=== PATIENT | male | born 1935 | race Caucasian/White ===

== ENCOUNTER 2018-09-25 14:29 | Inpatient (IN) ==
[2018-09-25] MEDS ORDERED: CLINDAMYCIN 900 MG/NS 900 MG/50 ML IVPB IV ONE (15:47)
[2018-09-25] MEDS ORDERED: VANCOMYCIN 1 GM/NS 1 GM/250 ML IVPB IV ONE (15:47)
[2018-09-25] MEDS ORDERED: NS 1,000 ML IV ONE (15:48)
[2018-09-25 16:19] LABS: BASO# 0.04 X1000 (0.0-0.2); BASO% 0.7 % (0.0-0.8); EOS# 0.01 X1000 (0.0-0.7); EOS% 0.2 % (0.0-10.0); HEMATOCRIT 43.3 % (42.0-52.0); HEMOGLOBIN 14.9 g/dL (14.0-18.0); LYMPH# 0.46 X1000 (1.2-3.4); MCH 31.8 PG (27-31); MCHC 34.4 g/dL (33-37); MCV 92.3 FL (81-99); MONO# 0.41 X1000 (0.11-0.59); MONO% 7.2 % (1.7-9.3); MPV 10.6 FL (7.4-10.4); NEUT# 4.81 X1000 (1.4-6.5); NEUT% 83.9 % (42.2-75.2); PLT 133 X1000 (130-400); RBC 4.69 XMIL (4.7-6.1); RDW 13.2 % (11.5-14.5); WBC 5.73 X1000 (4.8-10.8)
[2018-09-25 16:39] LABS: URINE SOURCE CLEAN CATCH
[2018-09-25 16:42] LABS: INR 1.01; PROTIME 14.1 Seconds (11.0-16.0)
[2018-09-25 16:43] LABS: PTT 25.1 Seconds (22.3-41.8)
[2018-09-25 16:45] LABS: ALB/GLOB RATIO 1.7; ALBUMIN 4.3 g/dL (3.5-5.0); CALCIUM 8.6 mg/dL (8.8-10.2); CREATININE 1.4 mg/dL (0.7-1.2); POTASSIUM 4.2 mmol/L (3.5-5.1); TOTAL BILIRUBIN 0.37 mg/dL (0.20-1.00); TOTAL PROTEIN 6.9 g/dL (6.3-8.3)
[2018-09-25 16:50] LABS: COLOR YELLOW; TURBIDITY URINE CLEAR (CLEAR)
[2018-09-25 16:51] LABS: BILIRUBIN URINE NEGATIVE (NEGATIVE); BLOOD URINE LARGE (NEGATIVE); GLUCOSE URINE TRACE mg/dL (NEGATIVE); KETONE URINE 20 mg/dL (NEGATIVE); LEUKOCYTES URINE NEGATIVE (NEGATIVE); NITRITE URINE NEGATIVE (NEGATIVE); PH URINE 5.5; PROTEIN URINE 50 mg/dL (NEGATIVE); SP GRAVITY URINE 1.023; UROBILINOGEN URINE NORMAL (NORMAL)
--- NOTE | 2018-09-25 16:51 | Diag Imaging Result Doc PS360 ---
EXAM: CHEST-2 VIEWS HISTORY: short of breath TECHNIQUE: Chest two views COMPARISON: 01/15/2013 FINDINGS: The lungs are hyperexpanded. The heart is not enlarged. The vessels are not distended. There are no infiltrates. No pleural effusions. Left granuloma. IMPRESSION: Stable chest. Electronically signed by Dante Fonseca 09/25/2018 4:49 PM
[2018-09-25 17:01] LABS: UR EPITHELIAL CELLS <10 /HPF (<10); URINE BACTERIA NEGATIVE /HPF; URINE RBC <10 /HPF (<10); URINE WBC <10 /HPF (<10)
[2018-09-25 17:11] LABS: URINE YEAST NONE SEEN
[2018-09-25] MEDS ORDERED: LR 1,000 ML IV ONE (18:03)
--- NOTE | 2018-09-25 18:32 | Diag Imaging Result Doc PS360 ---
EXAM: CT HEAD W/O CONTRAST HISTORY: confusion TECHNIQUE: CT head without contrast COMPARISON: None. FINDINGS: No parenchymal hemorrhage. No epidural or subdural hematoma. No subarachnoid hemorrhage. Minimal microvascular ischemic changes. No mass identified on this noncontrasted exam. No hydrocephalus. No sinus opacification. IMPRESSION: 1.No hemorrhage 2.Minimal microvascular ischemic changes This exam was performed using automated exposure control, adjustment of mA or kV according to patient size, and/or use of iterative reconstruction technique. Electronically signed by Dante Fonseca 09/25/2018 6:29 PM
[2018-09-25] MEDS ORDERED: TYLENOL PO ONE (19:24)
[2018-09-25 20:16] LABS: BASO# 0.01 X1000 (0.0-0.2); BASO% 0.2 % (0.0-0.8); EOS# 0.01 X1000 (0.0-0.7); EOS% 0.2 % (0.0-10.0); HEMATOCRIT 36.5 % (42.0-52.0); HEMOGLOBIN 12.3 g/dL (14.0-18.0); LYMPH# 0.86 X1000 (1.2-3.4); LYMPH% 17.2 % (20.5-51.1); MCH 31.2 PG (27-31); MCHC 33.7 g/dL (33-37); MCV 92.6 FL (81-99); MPV 10.1 FL (7.4-10.4); NEUT# 3.63 X1000 (1.4-6.5); NEUT% 72.4 % (42.2-75.2); PLT 117 X1000 (130-400); RBC 3.94 XMIL (4.7-6.1); RDW 13.1 % (11.5-14.5); WBC 5.01 X1000 (4.8-10.8)
[2018-09-25 20:49] LABS: CALCIUM 7.9 mg/dL (8.8-10.2); CREATININE 1.4 mg/dL (0.7-1.2); MAGNESIUM 1.7 mg/dL (1.5-2.7); POTASSIUM 4.3 mmol/L (3.5-5.1)
--- NOTE | 2018-09-25 20:55 | HISTORY AND PHYSICAL ---
CHIEF COMPLAINT: Weakness, nausea, vomiting. HISTORY OF PRESENT ILLNESS: Mr. Palma is an 83-year-old man with a past medical history of hypothyroidism, cag-felrexk-mzvirfhvy diabetes mellitus who had suspected brown recluse spider bite affecting his right forearm 5 days prior to presentation. He woke up with an itchy bite on his anterior aspect of right forearm. The next day it turned into a blister. The day following, it started causing redness involving the entire right forearm, so he [facility] 2 days prior to today's visit. In the Urgent Care Clinic, he was given he states IV antibiotic shot and p.o. antibiotics. His pain did not get better, so he again visited Urgent Care and he was given another shot of antibiotics and was discharged on p.o. Bactrim. However, today morning, he had developed fever of 100.8 degree Fahrenheit. The redness over the right forearm was improving, however, he was feeling so weak that he could not get up and so his daughter had visited him and they decided to bring him to the emergency room. In the emergency room, he was found to have sepsis with low-grade fever, tachycardia, and a lactic acidosis and so admission is requested. By the time I evaluated the patient, he has received intravenous clindamycin and intravenous vancomycin. The patient apparently as per report on arrival was also confused and so CT scan head was ordered. At the time of my evaluation, he appears alert and oriented. He states he is feeling a little better than he did before. He denies any known injury to the right forearm. He denies any coronary artery disease, congestive heart failure history. He denies any nausea, vomiting, after coming to the emergency room. He has taken 4 tablets of Bactrim so far. REVIEW OF SYSTEMS: Negative for headache. Negative for fall. Negative for blurriness of vision. Negative for chest pain or shortness of breath. Negative for abdominal pain, burning micturition, constipation or diarrhea. PAST MEDICAL HISTORY: Nmt-jwfnyxn-mfafgrtuc diabetes mellitus, hypothyroidism. PAST SURGICAL HISTORY: Multiple orthopedic surgery including left hemiarthroplasty of hip, wrist surgery, left knee surgery. ALLERGIES: Atorvastatin. FAMILY HISTORY: Not significant. SOCIAL HISTORY: Denies alcohol use. Denies tobacco use. Denies any recreational drug use. PHYSICAL EXAMINATION: VITAL SIGNS: His temperature is 99.8 degrees, pulse of 79, respiratory rate 20, blood pressure 117/64, saturating 93% on room air. GENERAL: He does not appear in any acute distress. HEENT: Oral cavity is dry. Pupils are bilaterally equal, reacting to light. LUNGS: Air entry bilaterally equal. No wheeze, rhonchi, crackles. CARDIOVASCULAR: S1, S2 normal. Not tachycardic. No murmur, rub, or gallop. ABDOMEN: Soft, nontender. No hepatosplenomegaly. EXTREMITIES: No lower extremity edema. Right upper extremity examination suggests he has intact radialis and brachialis pulses. He has about 2 mm nissa, which has crusted blood over anterior aspect of right forearm and there is some lymphangitis spread. There is no axillary, cervical, or trochlear adenopathy. LABORATORY STUDIES: Lab suggestive of no leukocytosis. Normal hemoglobin, hematocrit, and normal platelet count. Normal coagulation. He does have hypochloremia low bicarbonate, acute kidney injury. Urinalysis is unremarkable except blood. His creatine kinase is 978. ASSESSMENT: 1. Sepsis due to right forearm cellulitis status post failed outpatient p.o. antibiotic therapy. 2. Lactic acidosis. 3. Acute kidney injury. 4. History of xld-caxxqnn-qwksudmpg diabetes mellitus and hypothyroidism. PLAN: He received 1 L of intravenous fluids in the emergency room. I will start him on continuous infusion of lactated Ringer's, intravenous clindamycin. Follow up with blood culture results. I will follow up with repeat creatine kinase and TSH tomorrow. I will continue intravenous clindamycin and change it according to his response. Plan of care discussed with the patient and his family at bedside. All of the questions have been satisfactorily answered. I will admit the patient for intravenous antibiotics to routine medical floor. cc: Ozzie Rm MD
[2018-09-25] MEDS: HUMALOG SUBQ SCH ×2 (22:32→23:03)
[2018-09-26] MEDS: CLINDAMYCIN 600 MG/D5W 600 MG/50 ML IVPB IV SCH ×3 (02:04→16:51)
[2018-09-26] MEDS ORDERED: PNEUMOVAX 23 IM ONE (04:19)
[2018-09-26] MEDS: TYLENOL PO PRN ×2 (04:25→15:31)
[2018-09-26 06:30] LABS: HEMOGLOBIN 12.4 g/dL (14.0-18.0); MCH 31.2 PG (27-31); MCHC 33.5 g/dL (33-37); MPV 10.4 FL (7.4-10.4); NEUT% 69.3 % (42.2-75.2); PLT 106 X1000 (130-400); RBC 3.98 XMIL (4.7-6.1); RDW 13.2 % (11.5-14.5); WBC 3.98 X1000 (4.8-10.8)
[2018-09-26 06:31] LABS: BASO# 0.02 X1000 (0.0-0.2); BASO% 0.5 % (0.0-0.8); EOS# 0.05 X1000 (0.0-0.7); EOS% 1.3 % (0.0-10.0); LYMPH# 0.62 X1000 (1.2-3.4); LYMPH% 15.6 % (20.5-51.1); MONO# 0.53 X1000 (0.11-0.59); MONO% 13.3 % (1.7-9.3); NEUT# 2.76 X1000 (1.4-6.5)
[2018-09-26] MEDS: HUMALOG SUBQ SCH ×3 (06:40→15:41)
[2018-09-26 07:04] LABS: ALB/GLOB RATIO 1.2; ALBUMIN 3.2 g/dL (3.5-5.0); CALCIUM 7.8 mg/dL (8.8-10.2); CREATININE 1.2 mg/dL (0.7-1.2); POTASSIUM 4.1 mmol/L (3.5-5.1); TOTAL BILIRUBIN 0.36 mg/dL (0.20-1.00); TOTAL PROTEIN 5.8 g/dL (6.3-8.3)
[2018-09-26] MEDS: SYNTHROID PO SCH (09:17)
[2018-09-26] MEDS: ASPIRIN EC PO SCH (09:17)
--- NOTE | 2018-09-26 11:11 | PROVIDER DOCUMENTATION ---
This chart was entered by Cindy Noland Scribe, acting as scribe for Tuan Chavez MD. HPI-General Adult - General Chief Complaint: Vomiting Stated Complaint: FALL/VOMITING,WEAKNESS Time Seen by Provider: 09/25/18 15:30 Source: patient, family Allergies/Adverse Reactions: Patient Allergies Allergy/AdvReac Type Severity Reaction Status Date / Time atorvastatin calcium * Allergy Verified 01/16/13 15:36 [From Lipitor] Home Medications: Home Medication List Medication Instructions Recorded Confirmed Last Taken Type Aspirin EC 81 mg PO DAILY 01/15/13 09/25/18 01/24/13 08:00 History Metformin [Glucophage] 750 mg PO DAILY 01/15/13 09/25/18 01/24/13 07:00 History Levothyroxine [Synthroid] 50 mcg PO DAILY 09/25/18 09/25/18 Unknown History Sulfamethoxazole/Trimethoprim 1 tab PO BID 09/25/18 09/25/18 Unknown History [Sulfamethoxazole-Tmp Ds Tablet] - History of Present Illness -Gen Adult Nature of Presenting Problems: 83 yowm presents to the ed with c/o weakness, fatigue, n/v and fever. pt has bite on RUE and is currently on abx. pt has streaking from bite on arm. 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 pt has had emotional stress with passing Location of Pain/Injury: reports: upper extremity, generalized (weakness) Quality of Pain: reports: aching Severity: reports: moderate Onset/Duration: reports: 5 days ago Timing: reports: still present Context/Activities at Onset: reports: light activity Modifying Factors: improves with: nothing Associated Symptoms: reports: arm pain (from bite), fatigue, fever/chills, malaise, muscle aches, nausea, vomiting, weakness. denies: back/neck pain, chest pain, headaches, shortness of breath Similar Symptoms Previously?: Yes Recently seen or treated by another doctor?: Yes Review of Systems - Adult - REVIEW OF SYSTEMS - ADULT Constitutional: reports: chills, fever, fatique Eyes: reports: no symptoms reported Ears, Nose, Mouth & Throat: reports: no symptoms reported Cardiovascular: denies: chest pain, palpitations Respiratory: denies: cough, shortness of breath, wheezing Gastrointestinal: reports: nausea, vomiting. denies: diarrhea Genitourinary: reports: no symptoms reported Musculoskeletal: reports: see HPI, muscle aches, muscle weakness. denies: back pain, neck pain Integumentary: reports: see HPI, other (small round area of possible bite nissa) Neurological: denies: dizziness/vertigo, headache/migraines, syncope, tremors Psychiatric: reports: no symptoms reported Endocrine: reports: no symptoms reported Hematologic/Lymphatic: reports: no symptoms reported Allergic/Immunologic: reports: no symptoms reported All Other Systems: Reviewed and Negative Past History - Adult - PAST MEDICAL HISTORY-ADULT Review of Records: reports: Nursing Assessment Review, Medications Reviewed Major Childhood Illnesses: reports: denies history Cardiovascular: reports: HTN, hyperlipidemia Respiratory: reports: denies history Gastrointestinal: reports: GERD Genitourinary: reports: denies history Musculoskeletal: reports: denies history Neurological: reports: denies history Endocrine/Immune: reports: denies history Other Conditions: reports: denies history - PRIOR SURGERIES/PROCEDURES Surgical/Procedure History: reports: appendectomy, joint replacement - IMMUNIZATION STATUS Childhood Immunizations: See Nurse Assessment Flu Vaccine: See Nurse Assessment - FAMILY HISTORY Family History: reviewed, not pertinent - SOCIAL HISTORY Smoking: denies Substance Use: denies Living Situation: family Physical Exam-General - PHYSICAL EXAM-ADULT Initial Vital Signs Reviewed: Yes - CONSTITUTIONAL General Appearance: alert, mild distress - EYES Eyes: PERRL/EOMI, pink conjunctivae - HEAD, EARS, NOSE, MOUTH & THROAT HENMT: moist mucous membranes, normal ENT inspection - NECK Neck: non-tender, full range of motion, supple, normal inspection - RESPIRATORY Respiratory: chest non-tender, lungs clear, normal breath sounds - CARDIOVASCULAR Cardiovascular: normal peripheral pulses, regular rate, rhythm - GASTROINTESTINAL (ABDOMEN) Abdominal Exam: normal bowel sounds, non tender, soft - LYMPHATIC Lymphatic: no adenopathy - MUSCULOSKELETAL Back Exam: normal inspection, no CVA tenderness, no vertebral tenderness Extremity: normal capillary refill, pelvis stable, erythema (RUE), tenderness (arm) - SKIN Integumentary: normal color, normal turgor, warm/dry, erythema (RUE), tenderness (RUE) - NEUROLOGIC Neurologic: grossly normal, no motor/sensory deficits - PSYCHIATRIC Psych/Mental Status: normal mood/affect, normal thought content, normal thought process, oriented x 3 Progress - PLAN OF CARE/RESULTS Progress/Plan/Lab Results: Vital Signs - 8 hr 09/25/18 14:32 Temperature 99.8 F H Pulse Rate 98 H Respiratory Rate 18 Blood Pressure 118/69 O2 Sat by Pulse Oximetry 97 Orders Category Date Time Status CHEST-2 VIEWS [RAD] Stat Exams 09/25/18 15:46 Ordered BLOOD CULTURE [BLDCUL] Stat Lab 09/25/18 15:45 Ordered CBC WITH ELECTRONIC DIFF [HEME] Stat Lab 09/25/18 15:45 Uncollected CK TOTAL [CHEM] Stat Lab 09/25/18 15:45 Uncollected COMPREHENSIVE METABOLIC PANEL [CHEM] Stat Lab 09/25/18 15:46 Uncollected LACTATE, PLASMA [CHEM] Stat Lab 09/25/18 15:45 Uncollected PROTIME WITH INR [COAG] Stat Lab 09/25/18 15:45 Uncollected PTT [COAG] Stat Lab 09/25/18 15:45 Uncollected TROPONIN T Stat Lab 09/25/18 15:45 Uncollected URINALYSIS W/POSS RFLX CULT [URINALYSIS] Stat Lab 09/25/18 15:45 Uncollected 0.9% Sodium Chloride Inj [Ns] 1,000 ml Med 09/25/18 15:48 Active IV 999 mls/hr Clindamycin 900 mg/Ns Med 09/25/18 15:47 Active 900 mg in 50 ml IV NOW Vancomycin 1 gm/Ns Med 09/25/18 15:47 Active 1 gm in 250 ml IV NOW Result Diagrams: 09/26/18 05:40 09/26/18 05:40 - REASSESSMENT Reassessment #1 Time Reassessed: 16:06 Status: unchanged - XRAY 1 XRAY: Bilateral XRAY Study: Chest Impression: See EMR Report (EXAM: CHEST-2 VIEWS HISTORY: short of breath TECHNIQUE: Chest two views COMPARISON: 01/15/2013 FINDINGS: The lungs are hyperexpanded. The heart is not enlarged. The vessels are not distended. There are no infiltrates. No pleural effusions. Left granuloma. IMPRESSION: Stable chest. Electronically signed by Dante Fonseca 09/25/2018 4:49 PM 09/25/18 1649 Interpreting Physician: Dante Fonseca MD Dictated Date/Time: 09/25/18 1648 cc: Tuan Chavez MD; Emani Bullard MD) - CONSULTS/PCP/HOSPITALIST Notification #1 *Consult/PCP/Hospitalist*: hospitalist dr reed Time Discussed: 17:10 Consult Disposition: Admit Departure - Departure Date of Disposition Decision: 09/25/18 (\\) Time of Disposition Decision: 18:00 DIAGNOSIS: Altered consciousness, Lymphangitis Disposition: ADMITTED INPATIENT 09 Certified Medical Emergency: Emergent Condition: Serious - Critical Care Note This patient required my direct & personal management of CC.: No Attestation - Physician/ YAMEL Attestation Patient care was provided by Advanced Practice Provider:: No The physician spent face to face time with patient:: Yes Advanced Practice Provider documentation review:: Supervising physician onsite and consulted in the evaluation and care of this patient. The physician did have a face to face encounter with the patient. This chart was documented by the indicated scribe, (Cindy Noland Scribe) and accurately reflects the services I performed and decisions made by me, Tuan Chavez MD, as attested by the provider's signature.
--- NOTE | 2018-09-26 14:32 | PROGRESS NOTE ---
DATE: 09/26/2018 INTERVAL HISTORY: The patient did have a fever episode of 102 degrees Fahrenheit overnight for which he received Tylenol. He, in the morning time, feels much better than he did yesterday. Denies any chest pain or shortness of breath. He states his arm is getting better. However, he feels like he has become weak recently. VITAL SIGNS: Currently, temperature 98.3 degrees, pulse 60, respiratory rate 20, blood pressure 118/55, saturating 95% on room air. He denies any chest pain or shortness of breath. PHYSICAL EXAMINATION: General: Does not appear in acute distress. Oral cavity is moist. Lungs: Air entry is bilaterally equal. No wheeze, rhonchi, or crackles. Cardiovascular: S1, S2 normal. No murmur, rub, or gallop. Abdomen: Soft, nontender. No hepatosplenomegaly. Extremities: No lower extremity edema. Right upper extremity examination suggests he has intact radialis and brachialis pulses. He has about a 2 mm nissa, which looks like a crusted blood over the anterior aspect of the right forearm and there is a scab formation over it. The lymphangitic spread and erythema around the nissa has significantly decreased as compared to presentation. There was no axillary or trochlear lymphadenopathy. He is alert and oriented x3. LABS: Suggestive of WBC of 3.9, hemoglobin 12.4, platelets of 106,000. His electrolytes suggest resolution of hyponatremia, improving BUN and creatinine. His blood sugars are in acceptable range. His creatine kinase is on the higher side though. His troponins have been negative. His lactic acidosis has resolved. MICROBIOLOGY: Blood culture data in lab and so far, no organism has been cultured. ASSESSMENT AND PLAN: 1. Sepsis due to right forearm cellulitis, status post failed oral Bactrim therapy leading to lactic acidosis and acute kidney injury on presentation. He did develop, overnight, fever. However, I will continue with intravenous clindamycin to allow 24 hours for it to be totally effective and follow up with final blood culture data. His lactic acidosis has resolved. His acute kidney injury is improving. I will follow up with [facility] tomorrow. His Creatinine kinase is elevated but clinically his forearm has improved. He doesn't have features of compartment syndrome and has intact sensations and pulses. I will follow up with [facility] tomorrow. 2. History of yif-cjwmvak-gjuiyofmo diabetes mellitus. We will continue insulin lispro with meals and at nighttime sliding scale. Currently, blood sugars in acceptable range. 3. Hypothyroidism. I will continue levothyroxine. 4. Disposition. The patient feels a little weak and I will have physical therapy evaluate him. Based on that, it looks like he might become a candidate for discharge home with home physical therapy. If the blood cultures are negative, my plan would be to discharge him home in the next 24 to 48 hours if he does not develop any more episodes of fever; if he develops fever, he might need upgrade of antibiotics. Plan of care was discussed with him. Yesterday, I had discussed plan of care with the patient's daughter and his family. All of their questions have been answered. At home, patient lives by himself. cc: Ozzie Rm MD MTDD
--- NOTE | 2018-09-26 16:03 | EKG Report ---
Test Performed on : 09/26/2018 3:54:11 PM Test Reason : CK elevated Blood Pressure : / mmHG Vent. Rate : 066 BPM Atrial Rate : 066 BPM P-R Int : 160 ms QRS Dur : 072 ms QT Int : 380 ms P-R-T Axes : 068 044 054 degrees QTc Int : 398 ms Normal sinus rhythm. Normal ECG When compared with ECG of 15-JAN-2013 12:11, No significant change was found Confirmed by Dontrell ANDERSON, Vince Rincon ([id number]) on 09/27/2018 11:39:31 AM
[2018-09-26] MEDS: ZOSYN 3.375 GM in NS 50 ML IV SCH (17:54)
[2018-09-26] MEDS ORDERED: LR 1,000 ML IV SCH (18:15)
[2018-09-27] MEDS: HUMALOG SUBQ SCH ×5 (00:56→21:49)
[2018-09-27] MEDS: ZOSYN 3.375 GM in NS 50 ML IV SCH ×5 (00:57→22:54)
[2018-09-27] MEDS: TYLENOL PO PRN ×2 (02:41→15:19)
[2018-09-27 06:51] LABS: CALCIUM 7.5 mg/dL (8.8-10.2); CREATININE 1.2 mg/dL (0.7-1.2); POTASSIUM 3.8 mmol/L (3.5-5.1)
[2018-09-27] MEDS: SYNTHROID PO SCH (08:57)
[2018-09-27] MEDS: ASPIRIN EC PO SCH (08:57)
--- NOTE | 2018-09-27 11:26 | PROGRESS NOTE ---
DATE: 09/27/2018 SUBJECTIVE: This morning Mr. Palma refers to be doing a little better. He said he had a temperature last night, and he also has been having some watery stool. OBJECTIVE: Vital Signs: Blood pressure is 134/64, pulse of 60, respirations 20, and temperature is 97.8 degrees. The patient did have a temperature of 102.7 degrees early this morning. General: Mr. Palma is an 83-year-old male. He is in bed in no distress. Mucosa is pink and moist. Anicteric. Acyanotic. Neck: Supple. Chest: Clear to auscultation. No crepitations. No rhonchi. Cardiovascular: Regular rate and rhythm. No murmurs, no rubs, no gallops. Abdomen: Soft and nontender. Bowel sounds present. Extremities: Lower extremity, there is no pedal edema. Distal pulses present. On the upper extremity, the right has a small crusted bite site at the volar aspect of the forearm. The surrounding erythematous changes look remarkably improved. HEALTH AID: Patient is awake, alert, and oriented. LABORATORY: No CBC for this morning. Chemistry is reviewed. Creatinine has normalized at 1.2. Rest of chemistry is unremarkable. The patient's creatine kinase was 5835. ASSESSMENT: 1. Hypotension on presentation. We think it is a combination of sepsis and clinical volume depletion. 2. Severe dehydration on presentation. This is improving with IV fluids. 3. Mild rhabdomyolysis. We will continue with the IV fluids. CK is on downward trend. 4. History of hypothyroidism. We will continue with levothyroxine. 5. Diabetes mellitus. The patient will be on insulin for glycemic control. 6. Diarrhea. The patient is on IV antibiotics. This could all be side effects from that, but we would have to rule out possibility of a C. Diff so we will have to do stool studies this morning. 7. Right forearm cellulitis, presumably from insect bite, seems to be improved. PLAN: In general, it appears Mr. Palma is doing a lot better. It is concerning that he still continues to have a spike in temperature. His blood pressures, however, normalized. We are going to continue with the IV fluids. Continue with the current antibiotic coverage. There are stool studies ordered. His cellulitis is getting significantly better. We will follow up with the stool studies. cc: Braydon Haywood MD
[2018-09-27] MEDS: LR 1,000 ML IV SCH (12:03)
[2018-09-28] MEDS: LR 1,000 ML IV SCH ×3 (02:54→21:10)
[2018-09-28] MEDS: TYLENOL PO PRN (05:20)
[2018-09-28] MEDS: ZOSYN 3.375 GM in NS 50 ML IV SCH ×6 (05:20→18:23)
[2018-09-28 06:42] LABS: BASO# 0.05 X1000 (0.0-0.2); BASO% 1.1 % (0.0-0.8); EOS# 0.21 X1000 (0.0-0.7); EOS% 4.6 % (0.0-10.0); HEMATOCRIT 35.3 % (42.0-52.0); HEMOGLOBIN 11.9 g/dL (14.0-18.0); LYMPH# 1.21 X1000 (1.2-3.4); LYMPH% 26.6 % (20.5-51.1); MCH 31.2 PG (27-31); MCHC 33.7 g/dL (33-37); MCV 92.7 FL (81-99); MONO# 0.63 X1000 (0.11-0.59); MONO% 13.8 % (1.7-9.3); MPV 10.2 FL (7.4-10.4); NEUT# 2.45 X1000 (1.4-6.5); NEUT% 53.9 % (42.2-75.2); PLT 106 X1000 (130-400); RBC 3.81 XMIL (4.7-6.1); RDW 13.1 % (11.5-14.5); WBC 4.55 X1000 (4.8-10.8)
[2018-09-28 07:10] LABS: AGAP 10; ALB/GLOB RATIO 1.5; ALBUMIN 3.1 g/dL (3.5-5.0); ALKALINE PHOSPHATASE 50 U/L (32-122); BUN 11 mg/dL (8-22); CHLORIDE 103 mmol/L (98-107); COSMO 277; CREATININE 1.1 mg/dL (0.7-1.2); ESTIMATED GFR > 60; GLUCOSE 137 mg/dL (70-104); GOT 116 U/L (10-34); GPT 68 U/L (10-44); POTASSIUM 3.8 mmol/L (3.5-5.1); SODIUM 138 mmol/L (136-145); TCO2 25 mmol/L (25-35); TOTAL BILIRUBIN 0.47 mg/dL (0.20-1.00); TOTAL PROTEIN 5.2 g/dL (6.3-8.3)
[2018-09-28 07:23] LABS: CK TOTAL 2811 U/L (24-204)
[2018-09-28] MEDS: HUMALOG SUBQ SCH ×3 (07:39→18:24)
[2018-09-28] MEDS: ASPIRIN EC PO SCH (10:38)
[2018-09-28] MEDS: SYNTHROID PO SCH (10:38)
--- NOTE | 2018-09-28 10:55 | PROGRESS NOTE ---
DATE: 09/28/2018 SUBJECTIVE: This morning Mr. Palma refers to be doing a lot better. He said he was able to get up and do some walking with physical therapy. He still feels kind of wobbly under his feet. OBJECTIVE: Vital Signs: Blood pressure 110/49, pulse of 54, respirations 14, and temperature is 100.3 degrees. General: Mr. Palma is an 83-year-old male. He is in bed in no distress. HEENT: Mucosa is pink and moist. Anicteric. Acyanotic. Neck: Supple. Chest: Clear to auscultation. No crepitations. No rhonchi. Cardiovascular: Regular rate and rhythm. There were no murmurs. No rubs. No gallops. GI: Abdomen was soft and nontender. Bowel sounds were present. Extremities: No pedal edema. Distal pulses present. [employer]ICE: Patient is awake, alert, and oriented. Musculoskeletal: The right upper extremity had a crusted bite area which looks a lot better. LABORATORY DATA: WBC is 4.5, hemoglobin is 11.9, and platelet count 106,000. Chemistry is also reviewed. Renal function is normal. The patient's AST is 116, ALT 68. The creatinine kinase is 2811; all getting better. ASSESSMENT: 1. Hypotension on presentation resolved. 2. Severe dehydration on presentation improved. 3. Rhabdomyolysis. CK continues to trend down. 4. History of hypothyroidism. We will continue with levothyroxine. 5. Diabetes mellitus controlled. 6. Right forearm cellulitis, presumably from insect bite, improved. 7. Diarrhea improved. C. Diff was negative. 8. Transaminitis presumably from the rhabdomyolysis. We will still check the hepatitis panel. cc: Braydon Haywood MD
[2018-09-29] MEDS: HUMALOG SUBQ SCH ×3 (02:01→13:19)
[2018-09-29] MEDS: ZOSYN 3.375 GM in NS 50 ML IV SCH ×4 (06:40→12:47)
[2018-09-29 07:35] LABS: AGAP 10; ALB/GLOB RATIO 1.4; ALBUMIN 3.2 g/dL (3.5-5.0); ALKALINE PHOSPHATASE 56 U/L (32-122); BUN 10 mg/dL (8-22); CALCIUM 8.1 mg/dL (8.8-10.2); CHLORIDE 101 mmol/L (98-107); CK TOTAL 1268 U/L (24-204); COSMO 275; ESTIMATED GFR > 60; GLUCOSE 145 mg/dL (70-104); GOT 86 U/L (10-34); GPT 64 U/L (10-44); POTASSIUM 3.9 mmol/L (3.5-5.1); SODIUM 137 mmol/L (136-145); TCO2 26 mmol/L (25-35); TOTAL BILIRUBIN 0.37 mg/dL (0.20-1.00); TOTAL PROTEIN 5.5 g/dL (6.3-8.3)
[2018-09-29 09:03] VITALS: BP 128/67
[2018-09-29] MEDS: ASPIRIN EC PO SCH (10:17)
[2018-09-29] MEDS: SYNTHROID PO SCH (10:17)
[2018-09-29 12:33] LABS: HEPATITIS PROFILE ACUTE SEE COMMENTS
--- NOTE | 2018-09-30 08:32 | DISCHARGE SUMMARY ---
ADMISSION DATE: 09/25/2018 DISCHARGE DATE: 09/29/2018 DISPOSITION: Home. FOLLOW-UP: Will be with Dr. Bullard. CONSULTATION DURING THIS ADMISSION: None. IMAGING STUDIES: 1. A chest x-ray was stable. 2. A CT scan of the head showed no hemorrhage, minimal microvascular ischemic changes. ADMISSION DIAGNOSES: 1. Sepsis due to right forearm cellulitis. 2. Lactacidosis. 3. Acute kidney injury. 4. Diabetes mellitus. DIAGNOSIS AT DISCHARGE: 1. Hypotension on presentation secondary to combination of severe dehydration and sepsis. 2. Severe clinical volume depletion on presentation, resolved. 3. Rhabdomyolysis. CK trending down. 4. Hypothyroidism. Continue with levothyroxine. 5. Diabetes mellitus. Controlled on oral hypoglycemic agents. 6. Right forearm cellulitis, presumably from insect bite, improved. 7. Diarrhea, resolved. Clostridium difficile was negative. Presumably this is side effects of antibiotics. 8. Transaminitis secondary to rhabdomyolysis, improving. DISCHARGE MEDICATIONS: 1. Metformin 750 p.o. daily. 2. Levothyroxine 500 p.o. daily. 3. Keflex 50 mg b.i.d. PRESENTING COMPLAINT: Weakness, nausea. HISTORY OF PRESENT COMPLAINT: Mr. Palma is an 83-year-old male who has a history of dyslipidemia, hypothyroidism, hypertension, diabetes, came to the emergency department because of weakness and fever, was found to have erythematous changes on the right forearm. The patient was thought to have cellulitis associated with sepsis. His blood pressure went down sometimes to about 74/41. HOSPITAL COURSE: Mr. Palma was admitted to the medical floor, was found to be extremely dehydrated and with rhabdomyolysis, was started on IV fluids, was adequately resuscitated. Blood pressure became normalized. His creatinine also normalized. His CK, which was at one point 7837, came all the way down to 1268. His hydration status has significantly improved. The patient's blood cultures have been 48 hours negative. Stool cultures have also been negative. C diff was negative. This morning, Mr. Palma refers to be feeling a whole lot better. He has been able to do physical therapy here in the hospital. The daughter was at the bedside at the time of the encounter. His current vitals blood pressure is 138/67, pulse of 53, respiration is 18, temperature is 98.2 degrees. His current physical exam is unremarkable. Mr. Palma is tolerating his diet, and also has had regular bowel movement. We think he is stable for discharge. He has been advised to stay out of the sun for some time. Maintain adequate oral hydration and repeat his chemistry, including CK within a week. The patient has also been advised to follow up with his primary care doctor, Ms Emani Bullard. All the discharge instructions have been discussed with Mr. Palma and he voiced understanding. Mr. Palma will also be having home health for PT. All the discharge instructions have been discussed with Mr. Palma and the daughter who was at the bedside with him. They both voiced understanding. TIME SPENT: For discharge is 37 minutes. cc: MD Emani Stewart MD
== END 2018-09-29 13:25 | disposition home health service (06) | DRG 872 ==
LOC: ED 14:29 → EDIPHOLD 19:50 → SUATTDRO 19:50 → 4N 20:01
PROVIDERS: ATTEND Internal Medicine
CPT/HCPCS: 70450; 71020; 71046; 80048; 80053; 80074; 81001; 82550; 82948; 83605; 83735; 84443; 84484; 85025; 85610; 85730; 87040; 87045; 87046; 87205; 87324; 89055; 93005; 93010; 96365; 96367; 97116; 97162; 97530; 99285; A9270; J1815; J2543; J3370; J7030; J7120; S0077; XXXXX